=== PATIENT | female | born 2005 | race Caucasian/White ===

== ENCOUNTER 2024-03-21 09:52 | Emergency (ER) | payer OTHER, SELFPAY ==
--- NOTE | 2024-03-21 | DI.US.S_ITS ---
PROCEDURE: US PERIPH VENOUS LOW EXTREM LT INDICATIONS: LEFT LOWER LEG SWELLING X 2 MONTHS TECHNIQUE: Real-time imaging, as well as color and pulse Doppler interrogation, were performed of the lower extremity deep veins from the inguinal ligament to the popliteal fossa, with documentation of the visualized calf veins. COMPARISON: None. FINDINGS: The common femoral, femoral, popliteal, and the visualized calf veins are normally compressible, and free of intraluminal thrombus. Color and pulse Doppler demonstrate normal phasic intraluminal flow. There is normal augmentation response to distal compression maneuver. IMPRESSION: No findings of lower extremity deep venous thrombosis. Dictated by: Lolly Mae M.D. on 03/21/2024 at 11:48 Approved by: Lolly Mae M.D. on 03/21/2024 at 11:48
[2024-03-21 10:05] VITALS: BP 141/79; PULSE 99; RESP 18; TEMP 36.7; O2SAT 99; BMI 16.9
--- NOTE | 2024-03-21 10:34 | ED.EXTPRO ---
HPI - Extremity Problem General Chief complaint: Extremity Problem,Nontraumatic Stated complaint: L Ankle Swollen Time Seen by Provider: 03/21/24 10:27 Source: patient Mode of arrival: Ambulatory History of Present Illness HPI Narrative: Patient is a 19-year-old female here for evaluation was loosely described as a left ankle swelling but turns out that it was actually her left leg from her toes up to her knees. It has had occasional swelling over the past several months. It initially started after she rolled her left ankle. She states that the swelling has seemed to be getting worsened over the past couple weeks. She did have an extended car ride couple weeks ago however the swelling was actually going on prior to that. She was on oral control pills. Does not smoke. No chest pain. No shortness of breath. No fevers. She was able to ambulate. There are days when the swelling is actually not as bad as others. Related Data Allergies Allergy/AdvReac Type Severity Reaction Status Date / Time No Known Drug Allergies Allergy Verified 03/21/24 10:04 Review of Systems Review of Systems Narrative: See HPI Patient History Social History Smoking Status: Never smoker Smoking Status: Never smoker alcohol intake frequency: other Substance Use Type: does not use Exam Initial Vital Signs Initial Vital Signs: Vital Signs Temperature 98.1 F 03/21/24 10:05 Pulse Rate 99 H 03/21/24 10:05 Respiratory Rate 18 03/21/24 10:05 Blood Pressure 141/79 H 03/21/24 10:05 Pulse Oximetry 99 03/21/24 10:05 Oxygen Delivery Method Room Air 03/21/24 10:05 HENMT Head: normal to inspection and normocephalic Resp Effort & Inspection: normal respiratory effort Cardio Rate: regular rate Pulses: dorsalis pedis present bilaterally Skin General: no rashes or lesions noted Neuro General: patient alert, patient awake and patient oriented x3 Sensory Exam: no sensory deficits noted Extrem Other: Patient has circumferential swelling of the left lower extremity from her mid foot up to her calf. It is not tender to palpation. Compartments are soft. Course Orders Ordered: ED Orders 03/21/24 10:33 perip venous low extrem rt Stat Vital Signs Vital signs: Vital Signs - 8 hr 03/21/24 10:05 Temperature 98.1 F Pulse Rate 99 H Respiratory Rate 18 Blood Pressure 141/79 H Pulse Oximetry 99 Oxygen Delivery Method Room Air MDM - Extremity (Nontraumatic) Imaging Data US - DVT: Radiologist's Impression: No DVT noted MDM Narrative Medical decision making narrative: Physical exam is not consistent with a DVT and it is negative on the ultrasound. There was no signs of infection. No signs of fracture. No indication for radiologic studies. Patient was not in heart failure. I do have some question as to whether or not this is potentially a exercise-induced compartment syndrome. There was no compartment syndrome today as her compartments are soft. Recommended that she make contact with the primary doctor for a follow-up. Also gave her phone number for local orthopedist to follow-up as needed as well. She was given return precautions. Both her and her mother expressed understanding and agreement with plan. Discharge Plan Departure Patient Disposition: Home Clinical Impression: Lower extremity edema Instructions: DI for Peripheral Edema-Unilateral Activity Restrictions/Additional Instructions: Your workup here in the emergency department is very reassuring. There was no signs of a blood clot or any sort of infection. I do recommend that you make contact with the primary doctor to discuss follow-up. You can also contact the orthopedic doctors with the number provided below for follow-up as well. Return to the emergency department for new symptoms. Referrals: En Olivarez MD [Physician] - Stand Alone Forms: Patient Portal/API
[2024-03-21 12:53] VITALS: BP 112/65; PULSE 71; RESP 18; O2SAT 100
== END 2024-03-21 12:53 | disposition home or self-care (01) ==
PROVIDERS: Emergency Provider Emergency Medicine
DX: R60.0 Localized edema (principal)
CPT/HCPCS: 93971; 99281; 99283